=== PATIENT | male | born 1950 | race Caucasian/White ===

== ENCOUNTER 2016-12-19 14:12 | Inpatient (IN) | payer MEDICARE ==
[~2016-12-19] VITALS: Ht 185.4 cm; Wt 110.0 kg
[2016-12-19] MEDS ORDERED: PLEASE ENTER ALLERGIES MC SCH ×2 (14:30)
[2016-12-19] MEDS ORDERED: SODIUM CHLORIDE FLUSH 10ML SYR IVF ONE (14:30)
[2016-12-19] MEDS ORDERED: PLEASE ENTER HEIGHT AND WEIGHT MC SCH (14:30)
[2016-12-19 15:11] LABS: HEMATOCRIT 37.3 % (39.2-51.8); HEMOGLOBIN 11.7 g/dL (13.7-18.0); WHITE BLOOD COUNT 8.9 x10^3/uL (3.4-10)
[2016-12-19] MEDS: PANTOPRAZOLE 80 MG in SODIUM CHLORIDE 0.9% 100 ML IV SCH ×2 (15:12→18:39)
[2016-12-19 15:28] LABS: ASPARTATE AMINO TRANSFERASE 36 U/L (15-37)
[2016-12-19 15:30] LABS: BLOOD UREA NITROGEN 31 mg/dL (7-18)
[2016-12-19] MEDS ORDERED: OCTREOTIDE 500 MCG in SODIUM CHLORIDE 0.9% 249 ML IV PRN (15:40)
[2016-12-19] MEDS ORDERED: CETI10TA18 PO (15:45)
[2016-12-19] MEDS ORDERED: COLC0.6T37 PO (15:45)
[2016-12-19] MEDS ORDERED: ALBU8.5H8 INH (15:45)
[2016-12-19] MEDS ORDERED: CYAN500T18 PO (15:45)
[2016-12-19] MEDS ORDERED: ALLO300T PO (15:45)
[2016-12-19] MEDS ORDERED: BUDE0.5A INH (15:45)
[2016-12-19] MEDS ORDERED: FURO20TA3 PO (15:49)
[2016-12-19] MEDS ORDERED: DOXE25CA PO (15:49)
[2016-12-19] MEDS ORDERED: DIPH1TAB6 PO (15:49)
[2016-12-19] MEDS ORDERED: DULO30CA2 PO (15:49)
[2016-12-19] MEDS ORDERED: FLUT1DIS IH (15:49)
[2016-12-19] MEDS ORDERED: HYOS0.1268 PO (15:49)
[2016-12-19] MEDS ORDERED: DILT120C80 PO (15:49)
[2016-12-19] MEDS ORDERED: ONDA4TAB7 PO (15:52)
[2016-12-19] MEDS ORDERED: MESA500C PO (15:52)
[2016-12-19] MEDS ORDERED: POTA20TA89 PO (15:52)
[2016-12-19] MEDS ORDERED: OXYC10TA6 PO (15:52)
[2016-12-19] MEDS ORDERED: LORA0.5T PO (15:52)
[2016-12-19] MEDS ORDERED: LEVO25TA4 PO (15:52)
[2016-12-19] MEDS ORDERED: OMEP-110 PO (15:52)
[2016-12-19] MEDS ORDERED: OXYC10TA47 PO (15:52)
[2016-12-19] MEDS ORDERED: METH500T7 PO (15:52)
[2016-12-19] MEDS ORDERED: TAMS-11 PO (15:55)
[2016-12-19] MEDS ORDERED: PRAM0.255 PO (15:55)
[2016-12-19] MEDS ORDERED: TRAZ50TA18 PO (15:55)
[2016-12-19] MEDS ORDERED: ROSU10TA PO (15:55)
[2016-12-19] MEDS ORDERED: RIVA20TA PO (15:55)
[2016-12-19] MEDS ORDERED: VALA1000 PO (15:55)
[2016-12-19] MEDS ORDERED: OCTREOTIDE 100MCG/ML, 1ML (0.1MG/ML) ONE (15:59)
[2016-12-19] MEDS ORDERED: OCTREOTIDE 100MCG/ML, 1ML (0.1MG/ML) IV ONE (16:00)
[2016-12-19] MEDS ORDERED: SODIUM CHLORIDE FLUSH 10ML SYR IVF PRN (16:00)
[2016-12-19] MEDS ORDERED: PROPOFOL 10 MG/ML, 20ML ONE (16:20)
[2016-12-19] MEDS ORDERED: CEFTRIAXONE PMX 1GM/50ML 50 ML ONE (16:20)
[2016-12-19] MEDS ORDERED: CEFTRIAXONE PMX 1GM/50ML 50 ML IVPB ONE (16:30)
[2016-12-19] MEDS ORDERED: ONDANSETRON 2MG/ML, 2ML ONE (16:44)
[2016-12-19] MEDS ORDERED: BISACODYL 10 MG SUPP PR PRN (17:00)
[2016-12-19] MEDS ORDERED: ONDANSETRON 2MG/ML, 2ML IVPush PRN (17:00)
[2016-12-19] MEDS ORDERED: ACETAMINOPHEN 325 MG TABLET PO PRN (17:00)
[2016-12-19] MEDS ORDERED: DILTIAZEM 5 MG/ML, 5ML IVPush PRN (17:00)
[2016-12-19] MEDS ORDERED: LABETALOL 5MG/ML, 20ML IVPush PRN (17:00)
[2016-12-19] MEDS ORDERED: ONDANSETRON ODT 4 MG PO PRN (17:00)
[2016-12-19] MEDS ORDERED: POTASSIUM CHLORIDE 40 MEQ in SODIUM CHLORIDE 0.9% 500 ML IV ONE (17:00)
[2016-12-19] MEDS ORDERED: DOCUSATE 100 MG CAPSULE PO PRN (17:00)
[2016-12-19] MEDS ORDERED: POLYETHYLENE GLYCOL 17 GM PACKET PO PRN (17:00)
[2016-12-19] MEDS ORDERED: MORPHINE SULFATE 4 MG/ML, 1ML ONE (17:41)
[2016-12-19] MEDS: MORPHINE SULFATE 4 MG/ML, 1ML IVPush PRN ×2 (17:45→21:17)
[2016-12-19] MEDS ORDERED: ALBUTEROL SULFATE 2.5 MG/3 ML NPPB PRN (18:30)
[2016-12-19 18:33] VITALS: BP 155/69
[2016-12-19] MEDS ORDERED: MAGNESIUM SULFATE PMX 2GM/50ML 50 ML IV ONE (19:30)
[2016-12-19 20:02] VITALS: BP 157/87
[2016-12-19 20:03] LABS: HEMATOCRIT 34.7 % (39.2-51.8); HEMOGLOBIN 10.9 g/dL (13.7-18.0)
[2016-12-19] MEDS: NS + 20MEQ KCL 1,000 ML IV SCH (21:16)
[2016-12-19] MEDS: LORazepam 2 MG/ML, 1ML IVPush PRN (22:12)
[2016-12-20] MEDS: MORPHINE SULFATE 4 MG/ML, 1ML IVPush PRN ×7 (00:32→23:32)
[2016-12-20 02:04] VITALS: BP 160/82
[2016-12-20] MEDS: LORazepam 2 MG/ML, 1ML IVPush PRN ×2 (02:28→19:54)
[2016-12-20 02:44] LABS: HEMATOCRIT 32.4 % (39.2-51.8); HEMOGLOBIN 10.1 g/dL (13.7-18.0); WHITE BLOOD COUNT 5.5 x10^3/uL (3.4-10)
[2016-12-20 02:49] LABS: ASPARTATE AMINO TRANSFERASE 24 U/L (15-37); BLOOD UREA NITROGEN 21 mg/dL (7-18)
[2016-12-20 02:52] LABS: TOTAL IRON BINDING CAPACITY 392 mcg/dL (250-450)
[2016-12-20 07:14] VITALS: BP 147/83
[2016-12-20] MEDS: PANTOPRAZOLE 80 MG in SODIUM CHLORIDE 0.9% 100 ML IV SCH ×3 (08:03→20:10)
[2016-12-20 08:13] LABS: HEMATOCRIT 32.3 % (39.2-51.8); HEMOGLOBIN 10.2 g/dL (13.7-18.0)
[2016-12-20] MEDS: FLUTICASONE/VILANTEROL 100-25MCG/INH INH SCH (11:08)
[2016-12-20] MEDS: NS + 20MEQ KCL 1,000 ML IV SCH ×2 (11:09→20:10)
[2016-12-20 14:45] VITALS: BP 119/73
[2016-12-20] MEDS ORDERED: CEFTRIAXONE PMX 1GM/50ML 50 ML IV SCH (16:00)
[2016-12-20] MEDS: THIAMINE 100MG TABLET PO SCH (18:00)
[2016-12-20] MEDS: FOLIC ACID 1 MG TABLET PO SCH (18:00)
[2016-12-20] MEDS: MULTIVITAMIN 1 TABLET PO SCH (18:00)
[2016-12-20 18:33] VITALS: BP 176/78
[2016-12-20 19:13] LABS: HEMATOCRIT 31.6 % (39.2-51.8); HEMOGLOBIN 9.9 g/dL (13.7-18.0)
[2016-12-20] MEDS: CALCIUM CARBONATE 500 MG TAB.CHEW PO PRN (20:10)
[2016-12-20] MEDS: OxyconTIN ER 10 MG TAB.ER PO SCH (21:44)
[2016-12-20] MEDS: PRAMIPEXOLE 0.25MG TABLET PO SCH (21:44)
[2016-12-21] MEDS: LORazepam 2 MG/ML, 1ML IVPush PRN (00:38)
[2016-12-21 01:52] VITALS: BP 155/80
[2016-12-21] MEDS: PANTOPRAZOLE 80 MG in SODIUM CHLORIDE 0.9% 100 ML IV SCH (05:41)
[2016-12-21] MEDS: NS + 20MEQ KCL 1,000 ML IV SCH (05:41)
[2016-12-21] MEDS: LEVOTHYROXINE 25 MCG TABLET PO SCH (05:41)
[2016-12-21] MEDS: MORPHINE SULFATE 4 MG/ML, 1ML IVPush PRN ×3 (05:52→21:25)
[2016-12-21 05:59] LABS: BLOOD UREA NITROGEN 7 mg/dL (7-18)
[2016-12-21 06:39] VITALS: BP 165/90
[2016-12-21 07:41] LABS: HEMATOCRIT 30.1 % (39.2-51.8); HEMOGLOBIN 9.4 g/dL (13.7-18.0); WHITE BLOOD COUNT 4.4 x10^3/uL (3.4-10)
[2016-12-21] MEDS: FOLIC ACID 1 MG TABLET PO SCH (09:00)
[2016-12-21] MEDS: OxyconTIN ER 10 MG TAB.ER PO SCH ×2 (09:40→20:01)
[2016-12-21] MEDS: FLUTICASONE/VILANTEROL 100-25MCG/INH INH SCH (09:41)
[2016-12-21] MEDS: MULTIVITAMIN 1 TABLET PO SCH (09:43)
[2016-12-21] MEDS: THIAMINE 100MG TABLET PO SCH (09:43)
[2016-12-21] MEDS: PANTOPROZOLE 40MG TABLET PO SCH ×2 (09:56→20:01)
[2016-12-21] MEDS: DILTIAZEM 120 MG CAP.ER.24H PO SCH (09:57)
[2016-12-21] MEDS: CALCIUM CARBONATE 500 MG TAB.CHEW PO PRN (12:53)
[2016-12-21 16:21] VITALS: BP 155/78
[2016-12-21 18:35] VITALS: BP 148/77
[2016-12-21 19:35] LABS: HEMATOCRIT 34.2 % (39.2-51.8); HEMOGLOBIN 10.8 g/dL (13.7-18.0)
[2016-12-21] MEDS: PRAMIPEXOLE 0.25MG TABLET PO SCH (20:01)
[2016-12-21] MEDS: DULOXETINE 30 MG CAPSULE.DR PO SCH (20:01)
[2016-12-22] MEDS: MORPHINE SULFATE 4 MG/ML, 1ML IVPush PRN ×2 (01:21→04:18)
[2016-12-22 01:47] VITALS: BP 119/67
[2016-12-22 05:26] LABS: HEMATOCRIT 31.1 % (39.2-51.8); HEMOGLOBIN 9.8 g/dL (13.7-18.0); WHITE BLOOD COUNT 4.1 x10^3/uL (3.4-10)
[2016-12-22] MEDS: LEVOTHYROXINE 25 MCG TABLET PO SCH (05:36)
[2016-12-22 07:50] VITALS: BP 137/97
[2016-12-22] MEDS: FLUTICASONE/VILANTEROL 100-25MCG/INH INH SCH (08:26)
[2016-12-22] MEDS: OxyconTIN ER 10 MG TAB.ER PO SCH (08:27)
[2016-12-22] MEDS: MULTIVITAMIN 1 TABLET PO SCH (08:27)
[2016-12-22] MEDS: THIAMINE 100MG TABLET PO SCH (08:30)
[2016-12-22] MEDS: DULOXETINE 30 MG CAPSULE.DR PO SCH (08:31)
[2016-12-22] MEDS: PANTOPROZOLE 40MG TABLET PO SCH (08:31)
[2016-12-22] MEDS: DILTIAZEM 120 MG CAP.ER.24H PO SCH (08:31)
[2016-12-22] MEDS: FOLIC ACID 1 MG TABLET PO SCH (08:31)
[2016-12-22] MEDS ORDERED: OXYcodone IR 5MG TABLET PO ONE (10:30)
[2016-12-22] MEDS ORDERED: PANT40TA5 PO (12:08)
== END 2016-12-22 13:05 | disposition home or self-care (01) | DRG 378 ==
LOC: ED 15:58 → EDIP 15:59 → ED 18:47 → 4WST 19:06
PROVIDERS: ADMIT Internal Medicine; ATTEND Internal Medicine
PROC: 0DJ08ZZ Inspection of Upper Intestinal Tract, Via Natural or Artificial Opening Endoscopic (ICD-10-PCS; principal; 2016-12-19)
DX: K26.4 Chronic or unspecified duodenal ulcer with hemorrhage (principal); E44.1 Mild protein-calorie malnutrition; A04.7 Enterocolitis due to Clostridium difficile; I48.91 Unspecified atrial fibrillation; J44.9 Chronic obstructive pulmonary disease, unspecified; E83.51 Hypocalcemia; K22.10 Ulcer of esophagus without bleeding; I10 Essential (primary) hypertension; F10.20 Alcohol dependence, uncomplicated; D50.9 Iron deficiency anemia, unspecified; E03.9 Hypothyroidism, unspecified; E78.5 Hyperlipidemia, unspecified; Z68.30 Body mass index [BMI] 30.0-30.9, adult; E87.6 Hypokalemia; G89.29 Other chronic pain; M54.5 Low back pain; Y90.9 Presence of alcohol in blood, level not specified; K21.9 Gastro-esophageal reflux disease without esophagitis; M10.9 Gout, unspecified; Z66 Do not resuscitate; Z87.11 Personal history of peptic ulcer disease; Z86.010 Personal history of colon polyps; Z88.4 Allergy status to anesthetic agent; Z88.8 Allergy status to other drugs, medicaments and biological substances; Z91.018 Allergy to other foods; Z91.048 Other nonmedicinal substance allergy status
CPT/HCPCS: 36415; 80048; 80053; 82040; 82330; 83540; 83550; 83605; 83690; 83735; 84100; 85014; 85018; 85025; 85610; 85730; 86850; 86900; 93005; 96365; 96368; 96375; 99152; J0696; J2354; J2405; J3480; C9113; J2060; J3475; J7040; J7050